=== PATIENT | male | born 1990 | race African-American/Black ===

== ENCOUNTER 2017-01-20 13:31 | Inpatient (IN) | payer MEDICAID, OTHER ==
[~2017-01-20] VITALS: Ht 170.2 cm; Wt 99.4 kg
[~2017-01-20 13:31] MED LIST: BENZ1TAB10 PO; RISP1TAB89 PO
[2017-01-20] MEDS ORDERED: LORazepam 2 MG TABLET PO PRN (16:30)
[2017-01-20] MEDS ORDERED: HALOPERIDOL 5 MG TABLET PO PRN (16:30)
[2017-01-20] MEDS ORDERED: ZOLPIDEM TARTRATE 10 MG TABLET PO PRN (16:30)
[2017-01-20 16:56] LABS: EOSINOPHILS % (AUTO) 0.6 % (1.0-6.0); HEMATOCRIT 46.4 % (41-53); HEMOGLOBIN 15.1 g/dL (13.5-17.5); LYMPHOCYTES # (AUTO) 1.4 K/uL (1.0-4.8); LYMPHOCYTES % (AUTO) 15.7 % (22.0-44.0); MEAN CORPUSCULAR HEMOGLOBIN 28.5 pg (26.0-34.0); MEAN CORPUSCULAR HGB CONC 32.6 G/dL (31.0-37.0); MEAN CORPUSCULAR VOLUME 87 fL (80-100); MONOCYTES # (AUTO) 0.7 K/uL (0.1-1.0); MONOCYTES % (AUTO) 8.1 % (2.0-9.0); NEUTROPHILS # (AUTO) 6.9 K/uL (1.8-7.7); NEUTROPHILS % (AUTO) 75.6 % (40.0-70.0); PLATELET COUNT (AUTO) 238 K/uL (150-450); RED CELL DISTRIBUTION WIDTH 13.5 % (11.5-14.5); WHITE BLOOD COUNT (AUTO) 9.1 K/uL (4.5-11.0)
[2017-01-20 17:05] LABS: ANION GAP 14 mmol/L (8-16); CALCIUM, TOTAL 8.9 mg/dL (8.8-10.5); CARBON DIOXIDE 25 mmol/L (22-29); CHLORIDE 108 mmol/L (98-107); CREATININE 1.28 mg/dL (0.60-1.30); GLOMERULAR FILTR. RATE CALC > 60 mL/min (>60); POTASSIUM 3.8 mmol/L (3.5-5.1); SODIUM SERUM 147 mmol/L (136-145); UREA NITROGEN, BLOOD 18 mg/dL (7-18)
[2017-01-20 17:11] LABS: ALANINE AMINOTRANSFERASE 50 U/L (12-78); ALBUMIN 4.3 g/dL (3.4-5.0); ASPARTATE AMINOTRANSFERASE 87 U/L (15-37); BILIRUBIN,TOTAL 0.7 mg/dL (0.1-1.0); TOTAL PROTEIN, SERUM 7.5 g/dL (6.4-8.2)
[2017-01-20] MEDS ORDERED: LORazepam 2 MG/ML VIAL ONE (23:03)
[2017-01-20] MEDS ORDERED: HALOPERIDOL LACTATE 5 MG/ML VIAL ONE (23:03)
[2017-01-20] MEDS ORDERED: HALOPERIDOL LACTATE 5 MG/ML VIAL IM ONE (23:15)
[2017-01-20] MEDS ORDERED: LORazepam 2 MG/ML VIAL IM ONE (23:15)
[2017-01-21 14:37] VITALS: BP 138/58
[2017-01-21] MEDS ORDERED: INFLUENZA VIRUS VACCINE QVS 2016-17 (3YR+)/PF 60 MCG/0.5 ML SYRINGE IM ONE (16:15)
[2017-01-21 16:16] VITALS: BP 138/88
[2017-01-22 06:38] VITALS: BP 135/88
[2017-01-22 08:30] VITALS: BP 104/80
[2017-01-22] MEDS ORDERED: IBUPROFEN 400 MG TABLET PO PRN (11:15)
[2017-01-22] MEDS ORDERED: ACETAMINOPHEN 325 MG TABLET PO PRN (11:15)
[2017-01-22 16:25] VITALS: BP 123/72
[2017-01-22] MEDS: OLANZapine 5 MG TABLET PO SCH (16:56)
[2017-01-23 06:09] VITALS: BP 117/80
[2017-01-23 09:03] VITALS: BP 112/68
[2017-01-23] MEDS: OLANZapine 5 MG TABLET PO SCH ×2 (11:33→16:41)
[2017-01-23 16:00] VITALS: BP 117/69
[2017-01-24 07:19] VITALS: BP 116/68
[2017-01-24] MEDS: OLANZapine 5 MG TABLET PO SCH (08:49)
[2017-01-24 09:19] VITALS: BP 142/63
[2017-01-24 09:21] LABS: ANION GAP 8 mmol/L (8-16); CARBON DIOXIDE 31 mmol/L (22-29); CHLORIDE 107 mmol/L (98-107); GLOMERULAR FILTR. RATE CALC > 60 mL/min (>60); POTASSIUM 4.2 mmol/L (3.5-5.1); SODIUM SERUM 146 mmol/L (136-145); UREA NITROGEN, BLOOD 15 mg/dL (7-18)
[2017-01-24] MEDS ORDERED: OLAN5TAB2 PO (10:16)
== END 2017-01-24 13:08 | disposition home or self-care (01) | DRG 750 ==
LOC: EMS 13:32 → B3A 01-21 13:27
PROVIDERS: ADMIT Psychiatry & Neurology Psychiatry; ATTEND Psychiatry & Neurology Psychiatry
DX: F20.0 Paranoid schizophrenia (principal); E87.0 Hyperosmolality and hypernatremia; Z59.0 Homelessness; Z91.14 Patient's other noncompliance with medication regimen; F10.10 Alcohol abuse, uncomplicated; F12.90 Cannabis use, unspecified, uncomplicated; F32.9 Major depressive disorder, single episode, unspecified; F19.10 Other psychoactive substance abuse, uncomplicated; F99 Mental disorder, not otherwise specified; Z87.891 Personal history of nicotine dependence; Z91.09 Other allergy status, other than to drugs and biological substances; Z28.21 Immunization not carried out because of patient refusal
CPT/HCPCS: 96372; 99285; G0480; J1630; J2060

== ENCOUNTER 2017-01-26 01:02 | Emergency (ER) | payer MEDICAID, OTHER ==
[~2017-01-26] VITALS: Ht 172.7 cm; Wt 97.7 kg
[~2017-01-26 01:02] MED LIST changes: -BENZ1TAB10 PO; +OLAN5TAB2 PO; -RISP1TAB89 PO
[2017-01-26 05:25] VITALS: BP 144/83
== END 2017-01-26 05:59 | disposition home or self-care (01) ==
LOC: EMS 01:03
DX: S90.821A Blister (nonthermal), right foot, initial encounter (principal); S90.822A Blister (nonthermal), left foot, initial encounter; F12.90 Cannabis use, unspecified, uncomplicated; Z87.891 Personal history of nicotine dependence; Z91.048 Other nonmedicinal substance allergy status; Z91.09 Other allergy status, other than to drugs and biological substances
CPT/HCPCS: 99281

== ENCOUNTER 2017-01-26 22:20 | Emergency (ER) | payer OTHER ==
[~2017-01-26] VITALS: Ht 170.2 cm; Wt 97.7 kg
[2017-01-27] MEDS ORDERED: BACITRACIN 0.9 GM PACKET OINTMENT TP ONE (00:30)
[2017-01-27 01:34] VITALS: BP 129/78
== END 2017-01-27 01:34 | disposition home or self-care (01) ==
LOC: EMS 22:32
DX: S90.821A Blister (nonthermal), right foot, initial encounter (principal); S90.822A Blister (nonthermal), left foot, initial encounter; F12.90 Cannabis use, unspecified, uncomplicated; Z87.891 Personal history of nicotine dependence; Z91.048 Other nonmedicinal substance allergy status
CPT/HCPCS: 99282

== ENCOUNTER 2017-02-03 11:08 | Inpatient (IN) | payer MEDICAID, OTHER ==
[~2017-02-03] VITALS: Ht 172.7 cm; Wt 96.3 kg
[2017-02-03 11:52] LABS: BASOPHILS % (AUTO) 0.3 % (0.0-2.0); EOSINOPHILS % (AUTO) 2.8 % (1.0-6.0); HEMATOCRIT 44.8 % (41-53); HEMOGLOBIN 14.7 g/dL (13.5-17.5); LYMPHOCYTES # (AUTO) 1.4 K/uL (1.0-4.8); LYMPHOCYTES % (AUTO) 16.4 % (22.0-44.0); MEAN CORPUSCULAR HEMOGLOBIN 28.6 pg (26.0-34.0); MEAN CORPUSCULAR HGB CONC 32.9 G/dL (31.0-37.0); MEAN CORPUSCULAR VOLUME 87 fL (80-100); MONOCYTES # (AUTO) 0.5 K/uL (0.1-1.0); MONOCYTES % (AUTO) 6.3 % (2.0-9.0); NEUTROPHILS # (AUTO) 6.4 K/uL (1.8-7.7); NEUTROPHILS % (AUTO) 74.2 % (40.0-70.0); PLATELET COUNT (AUTO) 295 K/uL (150-450); RED BLOOD CELL COUNT(AUTO) 5.15 MIL/uL (4.50-5.90); RED CELL DISTRIBUTION WIDTH 13.7 % (11.5-14.5); WHITE BLOOD COUNT (AUTO) 8.7 K/uL (4.5-11.0)
[2017-02-03] MEDS ORDERED: DiphenhydrAMINE HCL 50 MG/ML VIAL IM ONE (12:00)
[2017-02-03] MEDS ORDERED: LORazepam 2 MG/ML VIAL IM ONE (12:00)
[2017-02-03] MEDS ORDERED: HALOPERIDOL LACTATE 5 MG/ML VIAL IM ONE (12:00)
[2017-02-03 12:04] LABS: ANION GAP 10 mmol/L (8-16); CALCIUM, TOTAL 8.2 mg/dL (8.8-10.5); CARBON DIOXIDE 29 mmol/L (22-29); CHLORIDE 104 mmol/L (98-107); CREATININE 1.16 mg/dL (0.60-1.30); GLOMERULAR FILTR. RATE CALC > 60 mL/min (>60); POTASSIUM 3.7 mmol/L (3.5-5.1); SODIUM SERUM 143 mmol/L (136-145); UREA NITROGEN, BLOOD 11 mg/dL (7-18)
[2017-02-03 12:11] LABS: ALANINE AMINOTRANSFERASE 97 U/L (12-78); ALBUMIN 3.8 g/dL (3.4-5.0); ASPARTATE AMINOTRANSFERASE 39 U/L (15-37); BILIRUBIN,TOTAL 0.7 mg/dL (0.1-1.0); TOTAL PROTEIN, SERUM 7.3 g/dL (6.4-8.2)
[2017-02-03] MEDS ORDERED: ZOLPIDEM TARTRATE 10 MG TABLET PO PRN (12:15)
[2017-02-03] MEDS ORDERED: HALOPERIDOL 5 MG TABLET PO PRN (12:15)
[2017-02-03 17:03] VITALS: BP 109/56
[2017-02-03 17:31] VITALS: BP 109/56
[2017-02-03] MEDS ORDERED: PNEUMOCOCCAL VACCINE POLYVALENT 0.5 ML VIAL [PPSV23] IM ONE (18:15)
[2017-02-03] MEDS ORDERED: INFLUENZA VIRUS VACCINE QVS 2016-17 (3YR+)/PF 60 MCG/0.5 ML SYRINGE IM ONE (18:15)
[2017-02-04 06:53] VITALS: BP 109/76
[2017-02-04 08:33] VITALS: BP 138/62
[2017-02-04] MEDS: HALOPERIDOL 5 MG TABLET PO SCH ×2 (09:01→17:06)
[2017-02-04] MEDS: LORazepam 2 MG TABLET PO PRN ×2 (09:01→17:06)
[2017-02-04 16:16] VITALS: BP 123/77
[2017-02-04] MEDS ORDERED: IBUPROFEN 400 MG TABLET PO PRN (23:00)
[2017-02-04] MEDS ORDERED: ACETAMINOPHEN 325 MG TABLET PO PRN (23:00)
[2017-02-05 06:28] VITALS: BP 120/66
[2017-02-05] MEDS: HALOPERIDOL 5 MG TABLET PO SCH ×2 (09:15→16:37)
[2017-02-05] MEDS: LORazepam 2 MG TABLET PO PRN ×2 (09:15→16:38)
[2017-02-05 09:27] VITALS: BP 124/68
[2017-02-05 16:01] VITALS: BP 127/78
[2017-02-06 05:05] VITALS: BP 127/71
[2017-02-06 08:07] VITALS: BP 112/70
[2017-02-06] MEDS: HALOPERIDOL 5 MG TABLET PO SCH ×2 (09:42→16:26)
[2017-02-06] MEDS ORDERED: INFLUENZA VIRUS VACCINE QVS 2016-17 (3YR+)/PF 60 MCG/0.5 ML SYRINGE IM ONE (10:30)
[2017-02-06 16:02] VITALS: BP 124/72
[2017-02-06] MEDS: LORazepam 2 MG TABLET PO PRN (16:26)
[2017-02-07 06:45] VITALS: BP 124/73
[2017-02-07] MEDS: HALOPERIDOL 5 MG TABLET PO SCH ×2 (08:06→17:05)
[2017-02-07 08:31] VITALS: BP 121/73
[2017-02-07 16:00] VITALS: BP 118/60
[2017-02-07] MEDS ORDERED: HALOPERIDOL DECANOATE 50 MG/ML VIAL IM SCH (16:15)
[2017-02-08 06:45] VITALS: BP 117/66
[2017-02-08 08:03] VITALS: BP 117/61
[2017-02-08] MEDS: LORazepam 2 MG TABLET PO PRN ×2 (09:45→17:05)
[2017-02-08] MEDS: HALOPERIDOL 5 MG TABLET PO SCH ×2 (09:45→17:05)
[2017-02-08 16:45] VITALS: BP 126/70
[2017-02-09 06:43] VITALS: BP 117/60
[2017-02-09] MEDS: HALOPERIDOL 5 MG TABLET PO SCH (08:00)
[2017-02-09] MEDS ORDERED: HALO5 PO (08:12)
[2017-02-09 08:17] VITALS: BP 119/71
[2017-03-08] MEDS ORDERED: HALOPERIDOL DECANOATE 50 MG/ML VIAL IM SCH (09:00)
== END 2017-02-09 09:03 | disposition home or self-care (01) | DRG 750 ==
LOC: EMS 11:09 → B3A 15:46
PROVIDERS: ADMIT Psychiatry & Neurology Psychiatry; ATTEND Psychiatry & Neurology Psychiatry
DX: F20.0 Paranoid schizophrenia (principal); Z91.14 Patient's other noncompliance with medication regimen; F32.9 Major depressive disorder, single episode, unspecified; F10.10 Alcohol abuse, uncomplicated; F19.10 Other psychoactive substance abuse, uncomplicated; F99 Mental disorder, not otherwise specified; Z79.899 Other long term (current) drug therapy; Z59.0 Homelessness; Z87.891 Personal history of nicotine dependence; Z91.19 Patient's noncompliance with other medical treatment and regimen; Z91.09 Other allergy status, other than to drugs and biological substances
CPT/HCPCS: 84443; 87081; 90471; 96372; 99285; G0480; J1200; J1630; J1631; J2060

== ENCOUNTER 2017-02-10 03:18 | Emergency (ER) | payer MEDICAID, OTHER ==
[~2017-02-10] VITALS: Ht 167.6 cm; Wt 113.6 kg
[~2017-02-10 03:18] MED LIST changes: +HALO5 PO
[2017-02-10 05:31] VITALS: BP 122/75
== END 2017-02-10 05:38 | disposition home or self-care (01) ==
LOC: EMS 03:20
DX: K08.89 Other specified disorders of teeth and supporting structures (principal); F12.90 Cannabis use, unspecified, uncomplicated; Z87.891 Personal history of nicotine dependence; Z91.048 Other nonmedicinal substance allergy status; Z91.09 Other allergy status, other than to drugs and biological substances
CPT/HCPCS: 99281

== ENCOUNTER 2018-07-07 19:41 | Emergency (ER) | payer SELFPAY ==
[~2018-07-07] VITALS: Ht 175.3 cm; Wt 111.4 kg
[~2018-07-07 19:41] MED LIST changes: -HALO5 PO; +HALO5TAB2 PO; -OLAN5TAB2 PO
[2018-07-07 20:05] VITALS: BP 162/94
== END 2018-07-07 21:55 | disposition home or self-care (01) ==
LOC: EMS 19:42
DX: F20.9 Schizophrenia, unspecified (principal); F12.90 Cannabis use, unspecified, uncomplicated; F17.210 Nicotine dependence, cigarettes, uncomplicated
CPT/HCPCS: 99285

== ENCOUNTER 2020-03-20 14:26 | Emergency (ER) | payer MEDICARE ==
[~2020-03-20] VITALS: Ht 175.3 cm; Wt 90.9 kg
[2020-03-20 14:34] VITALS: BP 160/82
[2020-03-20 16:58] LABS: BASOPHILS % (AUTO) 0.7 % (0.0-2.0); HEMOGLOBIN 14.2 g/dL (13.5-17.5); LYMPHOCYTES # (AUTO) 2.2 K/uL (1.0-4.8); LYMPHOCYTES % (AUTO) 22.9 % (22.0-44.0); MEAN CORPUSCULAR HEMOGLOBIN 28.4 pg (26.0-34.0); MEAN CORPUSCULAR HGB CONC 33.1 G/dL (31.0-37.0); MEAN CORPUSCULAR VOLUME 86 fL (80-100); MONOCYTES % (AUTO) 10.9 % (2.0-9.0); NEUTROPHILS # (AUTO) 6.1 K/uL (1.8-7.7); NEUTROPHILS % (AUTO) 64.5 % (40.0-70.0); PLATELET COUNT (AUTO) 295 K/uL (150-450); RED BLOOD CELL COUNT(AUTO) 5.02 MIL/uL (4.50-5.90); RED CELL DISTRIBUTION WIDTH 13.8 % (11.5-14.5)
[2020-03-20 17:07] LABS: ANION GAP 7 mmol/L (8-16); CALCIUM, TOTAL 8.9 mg/dL (8.8-10.5); CARBON DIOXIDE 28 mmol/L (22-29); CHLORIDE 105 mmol/L (98-107); CREATININE 1.43 mg/dL (0.60-1.30); GLOMERULAR FILTR. RATE CALC > 60 mL/min (>60); GLUCOSE,RANDOM 108 mg/dL (70-110); POTASSIUM 3.6 mmol/L (3.5-5.1); SODIUM SERUM 140 mmol/L (136-145); UREA NITROGEN, BLOOD 18 mg/dL (7-18)
[2020-03-20 17:13] LABS: ALANINE AMINOTRANSFERASE 60 U/L (12-78); ALBUMIN 4.1 g/dL (3.4-5.0); ALKALINE PHOSPHATASE 78 U/L (46-116); ASPARTATE AMINOTRANSFERASE 64 U/L (15-37); BILIRUBIN,TOTAL 0.4 mg/dL (0.1-1.0); TOTAL PROTEIN, SERUM 7.5 g/dL (6.4-8.2)
== END 2020-03-20 17:54 | disposition home or self-care (01) ==
LOC: EMS 14:28
DX: F69 Unspecified disorder of adult personality and behavior (principal); F12.90 Cannabis use, unspecified, uncomplicated; F20.9 Schizophrenia, unspecified; F17.210 Nicotine dependence, cigarettes, uncomplicated
CPT/HCPCS: 36415; 80053; 85025; 99284; G0480

== ENCOUNTER 2020-04-13 05:15 | Emergency (ER) | payer MEDICARE ==
[~2020-04-13] VITALS: Ht 175.3 cm; Wt 109.1 kg
[2020-04-13] MEDS ORDERED: ATEN-187 PO (05:29)
[2020-04-13 06:50] VITALS: BP 130/101
== END 2020-04-13 07:16 | disposition home or self-care (01) ==
LOC: EMS 05:15
DX: F20.9 Schizophrenia, unspecified (principal); F17.210 Nicotine dependence, cigarettes, uncomplicated; I10 Essential (primary) hypertension; F14.90 Cocaine use, unspecified, uncomplicated; F12.90 Cannabis use, unspecified, uncomplicated; Z76.0 Encounter for issue of repeat prescription
CPT/HCPCS: 99406

== ENCOUNTER 2020-04-20 20:54 | Emergency (ER) | payer MEDICARE ==
[~2020-04-20] VITALS: Ht 175.3 cm; Wt 145.4 kg
[~2020-04-20 20:54] MED LIST changes: +ATEN-187 PO; -HALO5TAB2 PO
[2020-04-20 21:04] VITALS: BP 145/81
[2020-04-21] MEDS ORDERED: OLAN5TAB2 PO (07:03)
== END 2020-04-20 21:25 | disposition left against medical advice (07) ==
LOC: EMS 20:54
DX: Z76.0 Encounter for issue of repeat prescription (principal); Z53.21 Procedure and treatment not carried out due to patient leaving prior to being seen by health care provider

== ENCOUNTER 2020-04-21 06:54 | Emergency (ER) | payer MEDICARE ==
[~2020-04-21] VITALS: Ht 175.3 cm; Wt 136.4 kg
[2020-04-21] MEDS ORDERED: OLAN5TAB2 PO (07:03)
[2020-04-21] MEDS ORDERED: IBUPROFEN 800 MG TABLET PO ONE (07:30)
[2020-04-21 08:13] VITALS: BP 132/79
== END 2020-04-21 08:14 | disposition home or self-care (01) ==
LOC: EMS 06:54
DX: J39.2 Other diseases of pharynx (principal); I10 Essential (primary) hypertension; F17.210 Nicotine dependence, cigarettes, uncomplicated; F12.90 Cannabis use, unspecified, uncomplicated; F20.9 Schizophrenia, unspecified

== ENCOUNTER 2020-09-28 04:10 | Emergency (ER) | payer MEDICARE ==
[~2020-09-28] VITALS: Ht 175.3 cm; Wt 88.2 kg
[~2020-09-28 04:10] MED LIST changes: +OLAN5TAB2 PO
[2020-09-28 05:23] VITALS: BP 135/70
== END 2020-09-28 07:07 | disposition home or self-care (01) ==
LOC: EMS 04:14
DX: Z59.0 Homelessness (principal); I10 Essential (primary) hypertension; F20.9 Schizophrenia, unspecified; F17.210 Nicotine dependence, cigarettes, uncomplicated; F12.90 Cannabis use, unspecified, uncomplicated; Z76.0 Encounter for issue of repeat prescription
CPT/HCPCS: 99283; Z7502

== ENCOUNTER 2020-10-25 23:29 | Emergency (ER) | payer BC ==
[~2020-10-25] VITALS: Ht 180.3 cm; Wt 136.4 kg
[2020-10-26 02:26] LABS: BASOPHILS % (AUTO) 0.4 % (0.0-2.0); EOSINOPHILS % (AUTO) 6.8 % (1.0-6.0); LYMPHOCYTES # (AUTO) 1.4 K/uL (1.0-4.8); LYMPHOCYTES % (AUTO) 12.7 % (22.0-44.0); MEAN CORPUSCULAR HEMOGLOBIN 29.9 pg (26.0-34.0); MEAN CORPUSCULAR HGB CONC 34.2 G/dL (31.0-37.0); MEAN CORPUSCULAR VOLUME 88 fL (80-100); MONOCYTES % (AUTO) 9.5 % (2.0-9.0); NEUTROPHILS # (AUTO) 7.7 K/uL (1.8-7.7); NEUTROPHILS % (AUTO) 70.6 % (40.0-70.0); PLATELET COUNT (AUTO) 298 K/uL (150-450); RED BLOOD CELL COUNT(AUTO) 5.03 MIL/uL (4.50-5.90); RED CELL DISTRIBUTION WIDTH 14.1 % (11.5-14.5)
[2020-10-26 02:36] LABS: ANION GAP 5 mmol/L (8-16); CALCIUM, TOTAL 8.8 mg/dL (8.8-10.5); CARBON DIOXIDE 32 mmol/L (22-29); CHLORIDE 105 mmol/L (98-107); CREATININE 1.47 mg/dL (0.60-1.30); GLOMERULAR FILTR. RATE CALC 57 mL/min (>60); GLUCOSE,RANDOM 64 mg/dL (70-110); POTASSIUM 4.1 mmol/L (3.5-5.1); SODIUM SERUM 142 mmol/L (136-145); UREA NITROGEN, BLOOD 17 mg/dL (7-18)
[2020-10-26 02:44] LABS: ALANINE AMINOTRANSFERASE 36 U/L (12-78); ALBUMIN 3.9 g/dL (3.4-5.0); ALKALINE PHOSPHATASE 89 U/L (46-116); ASPARTATE AMINOTRANSFERASE 29 U/L (15-37); BILIRUBIN,TOTAL 0.4 mg/dL (0.1-1.0); TOTAL PROTEIN, SERUM 7.5 g/dL (6.4-8.2)
[2020-10-26 02:48] VITALS: BP 132/89
== END 2020-10-26 03:01 | disposition home or self-care (01) ==
LOC: EMS 23:29
DX: F22 Delusional disorders (principal); I10 Essential (primary) hypertension; F17.210 Nicotine dependence, cigarettes, uncomplicated; F12.90 Cannabis use, unspecified, uncomplicated; Z76.0 Encounter for issue of repeat prescription
CPT/HCPCS: 80053; 85025; 99283; 99406; G0480

== ENCOUNTER 2020-11-02 17:58 | Emergency (ER) | payer BC ==
[~2020-11-02] VITALS: Ht 170.2 cm; Wt 127.3 kg
[2020-11-02 18:11] VITALS: BP 137/78
[2020-11-02] MEDS ORDERED: KETOROLAC TROMETHAMINE 30 MG/ML VIAL IM ONE (19:45)
[2020-11-02] MEDS ORDERED: LIDOCAINE 1% 10 ML VIAL IM ONE (20:00)
== END 2020-11-02 20:37 | disposition home or self-care (01) ==
LOC: EMS 18:00
DX: S29.012A Strain of muscle and tendon of back wall of thorax, initial encounter (principal); F20.9 Schizophrenia, unspecified; I10 Essential (primary) hypertension; F17.210 Nicotine dependence, cigarettes, uncomplicated; F12.90 Cannabis use, unspecified, uncomplicated; X58.XXXA Exposure to other specified factors, initial encounter; Y93.02 Activity, running; Y92.89 Other specified places as the place of occurrence of the external cause; Y99.8 Other external cause status
CPT/HCPCS: 96372; 99284; J1885; J3490

== ENCOUNTER 2020-11-04 22:41 | Emergency (ER) | payer BC ==
[~2020-11-04] VITALS: Ht 177.8 cm; Wt 92.3 kg
[2020-11-05 02:03] VITALS: BP 129/75
== END 2020-11-05 02:20 | disposition home or self-care (01) ==
LOC: EMS 22:43
DX: J02.9 Acute pharyngitis, unspecified (principal); R09.81 Nasal congestion; I10 Essential (primary) hypertension; F20.9 Schizophrenia, unspecified; F17.210 Nicotine dependence, cigarettes, uncomplicated; F12.90 Cannabis use, unspecified, uncomplicated; Z20.828 Contact with and (suspected) exposure to other viral communicable diseases; Z88.8 Allergy status to other drugs, medicaments and biological substances
CPT/HCPCS: 87430; 99283; U0003

== ENCOUNTER 2021-01-18 07:21 | Emergency (ER) | payer BC, MEDICARE ==
[~2021-01-18] VITALS: Ht 175.3 cm; Wt 100.0 kg
[2021-01-18 07:27] VITALS: BP 137/83
[2021-01-18] MEDS ORDERED: OLANZapine 5 MG TABLET PO ONE (07:45)
== END 2021-01-18 08:19 | disposition home or self-care (01) ==
LOC: EMS 07:23
DX: Z76.0 Encounter for issue of repeat prescription (principal); I10 Essential (primary) hypertension; F20.9 Schizophrenia, unspecified; F17.210 Nicotine dependence, cigarettes, uncomplicated; F12.90 Cannabis use, unspecified, uncomplicated; Z59.0 Homelessness; Z88.8 Allergy status to other drugs, medicaments and biological substances
CPT/HCPCS: 99281; 99283

== ENCOUNTER 2021-04-19 19:36 | Emergency (ER) | payer MEDICARE ==
[~2021-04-19] VITALS: Ht 180.3 cm; Wt 106.8 kg
[~2021-04-19 19:36] MED LIST changes: -OLAN5TAB2 PO; +OLAN5TAB52 PO
[2021-04-19 21:00] VITALS: BP 126/62
== END 2021-04-19 21:20 | disposition home or self-care (01) ==
LOC: EMS 19:38
DX: F20.0 Paranoid schizophrenia (principal); I10 Essential (primary) hypertension; F17.210 Nicotine dependence, cigarettes, uncomplicated; F12.90 Cannabis use, unspecified, uncomplicated; Z88.8 Allergy status to other drugs, medicaments and biological substances
CPT/HCPCS: 99284; Z7502

== ENCOUNTER 2021-04-25 07:17 | Emergency (ER) | payer MEDICARE ==
[~2021-04-25] VITALS: Ht 172.7 cm; Wt 72.7 kg
[2021-04-25 08:43] LABS: BASOPHILS % (AUTO) 0.7 % (0.0-2.0); EOSINOPHILS % (AUTO) 5.4 % (1.0-6.0); HEMATOCRIT 45.5 % (41-53); HEMOGLOBIN 15.2 g/dL (13.5-17.5); LYMPHOCYTES # (AUTO) 1.8 K/uL (1.0-4.8); LYMPHOCYTES % (AUTO) 32.4 % (22.0-44.0); MEAN CORPUSCULAR HEMOGLOBIN 29.5 pg (26.0-34.0); MEAN CORPUSCULAR HGB CONC 33.5 G/dL (31.0-37.0); MEAN CORPUSCULAR VOLUME 88 fL (80-100); MONOCYTES # (AUTO) 0.5 K/uL (0.1-1.0); MONOCYTES % (AUTO) 8.4 % (2.0-9.0); NEUTROPHILS # (AUTO) 2.9 K/uL (1.8-7.7); NEUTROPHILS % (AUTO) 53.1 % (40.0-70.0); PLATELET COUNT (AUTO) 260 K/uL (150-450); RED BLOOD CELL COUNT(AUTO) 5.16 MIL/uL (4.50-5.90); RED CELL DISTRIBUTION WIDTH 13.5 % (11.5-14.5)
[2021-04-25 08:54] LABS: ANION GAP 10 mmol/L (8-16); CALCIUM, TOTAL 8.7 mg/dL (8.8-10.5); CARBON DIOXIDE 30 mmol/L (22-29); CHLORIDE 104 mmol/L (98-107); CREATININE 1.08 mg/dL (0.60-1.30); GLOMERULAR FILTR. RATE CALC > 60 mL/min (>60); GLUCOSE,RANDOM 91 mg/dL (70-110); POTASSIUM 4.4 mmol/L (3.5-5.1); SODIUM SERUM 144 mmol/L (136-145); UREA NITROGEN, BLOOD 24 mg/dL (7-18)
[2021-04-25 09:08] LABS: ALANINE AMINOTRANSFERASE 40 U/L (12-78); ALBUMIN 3.8 g/dL (3.4-5.0); ALKALINE PHOSPHATASE 79 U/L (46-116); ASPARTATE AMINOTRANSFERASE 43 U/L (15-37); BILIRUBIN,TOTAL 0.4 mg/dL (0.1-1.0); FREE T4 (FREE THYROXINE) 1.13 ng/dL (0.76-1.46); PHOSPHORUS 4.4 mg/dL (2.5-4.9); THYROID STIMULATING HORMONE 1.34 uIU/mL (0.36-3.74); TOTAL PROTEIN, SERUM 7.2 g/dL (6.4-8.2)
[2021-04-25 09:12] LABS: COVID AG,FIA SOURCE NASOPHARYNGEAL
[2021-04-25 10:08] LABS: RAPID GROUP A STREP NEGATIVE (NEGATIVE)
[2021-04-25 11:00] VITALS: BP 122/81
== END 2021-04-25 11:02 | disposition home or self-care (01) ==
LOC: EMS 07:19
DX: J02.9 Acute pharyngitis, unspecified (principal); F20.9 Schizophrenia, unspecified; Z20.822 Contact with and (suspected) exposure to COVID-19; I10 Essential (primary) hypertension; F17.210 Nicotine dependence, cigarettes, uncomplicated; F12.90 Cannabis use, unspecified, uncomplicated
CPT/HCPCS: 36415; 80053; 83735; 84100; 84439; 84443; 85025; 87426; 87430; 99283; G0480

== ENCOUNTER 2021-05-03 07:24 | Inpatient (IN) | payer MEDICARE ==
[~2021-05-03] VITALS: Ht 172.7 cm; Wt 74.8 kg
[2021-05-03] MEDS ORDERED: OLAN7.5T22 PO (07:47)
[2021-05-03 08:15] LABS: BASOPHILS % (AUTO) 0.9 % (0.0-2.0); EOSINOPHILS % (AUTO) 2.7 % (1.0-6.0); HEMATOCRIT 41.5 % (41-53); HEMOGLOBIN 13.2 g/dL (13.5-17.5); LYMPHOCYTES # (AUTO) 3.5 K/uL (1.0-4.8); LYMPHOCYTES % (AUTO) 32.3 % (22.0-44.0); MEAN CORPUSCULAR HEMOGLOBIN 26.2 pg (26.0-34.0); MEAN CORPUSCULAR HGB CONC 31.8 G/dL (31.0-37.0); MEAN CORPUSCULAR VOLUME 82 fL (80-100); MONOCYTES % (AUTO) 9.8 % (2.0-9.0); NEUTROPHILS # (AUTO) 5.8 K/uL (1.8-7.7); NEUTROPHILS % (AUTO) 54.3 % (40.0-70.0); PLATELET COUNT (AUTO) 283 K/uL (150-450); RED BLOOD CELL COUNT(AUTO) 5.04 MIL/uL (4.50-5.90); RED CELL DISTRIBUTION WIDTH 13.8 % (11.5-14.5)
[2021-05-03 08:25] LABS: ANION GAP 8 mmol/L (8-16); CALCIUM, TOTAL 8.6 mg/dL (8.8-10.5); CARBON DIOXIDE 26 mmol/L (22-29); CHLORIDE 105 mmol/L (98-107); CREATININE 1.02 mg/dL (0.60-1.30); GLOMERULAR FILTR. RATE CALC > 60 mL/min (>60); GLUCOSE,RANDOM 110 mg/dL (70-110); POTASSIUM 3.7 mmol/L (3.5-5.1); SODIUM SERUM 139 mmol/L (136-145); UREA NITROGEN, BLOOD 8 mg/dL (7-18)
[2021-05-03 08:37] LABS: ALANINE AMINOTRANSFERASE 34 U/L (12-78); ALBUMIN 3.5 g/dL (3.4-5.0); ALKALINE PHOSPHATASE 71 U/L (46-116); ASPARTATE AMINOTRANSFERASE 24 U/L (15-37); BILIRUBIN,TOTAL 0.2 mg/dL (0.1-1.0); TOTAL PROTEIN, SERUM 6.6 g/dL (6.4-8.2)
[2021-05-03 09:51] LABS: AMPHET/METH SCREEN,URINE NEGATIVE (NEGATIVE); BARBITURATE SCREEN, URINE NEGATIVE (NEGATIVE); BENZODIAZEPINES SCREEN,URINE NEGATIVE (NEGATIVE); CANNABINOID SCREEN,URINE POSITIVE (NEGATIVE); COCAINE SCREEN,URINE NEGATIVE (NEGATIVE); METHADONE SCREEN, URINE NEGATIVE (NEGATIVE); OPIATE SCREEN,URINE NEGATIVE (NEGATIVE)
[2021-05-03 09:53] LABS: PHENCYCLIDINE SCREEN,URINE NEGATIVE (NEGATIVE)
[2021-05-03 13:22] LABS: COVID AG,FIA SOURCE NASOPHARYNGEAL
[2021-05-03] MEDS ORDERED: PROMETHAZINE HCL 25 MG TABLET PO PRN (13:30)
[2021-05-03] MEDS ORDERED: MAGNESIUM HYDROXIDE SUSPENSION 30 ML UDCUP PO PRN (13:30)
[2021-05-03] MEDS ORDERED: GuaiFENesin/D-METHORPHAN [SUGAR-FREE] 200-20MG/10 ML SYRUP UDCUP PO PRN (13:30)
[2021-05-03] MEDS ORDERED: TUBERCULIN, PURIFIED PROTEIN DERIVATIVE 5 TU/0.1 ML SYRINGE ID ONE (13:30)
[2021-05-03] MEDS ORDERED: LOPERAMIDE HCL 2 MG CAPSULE PO PRN (13:30)
[2021-05-03] MEDS ORDERED: MAG HYDROX/AL HYDROX/SIMETH ES 30 ML SUSPENSION UDCUP PO PRN (13:30)
[2021-05-03] MEDS ORDERED: ACETAMINOPHEN 325 MG TABLET PO PRN (13:30)
[2021-05-03] MEDS: THIAMINE 100 MG TABLET PO SCH (16:46)
[2021-05-03 18:12] VITALS: BP 122/68
[2021-05-03] MEDS: ZOLPIDEM TARTRATE 10 MG TABLET PO PRN (20:42)
[2021-05-03] MEDS: MELATONIN 5 MG TABLET PO SCH (20:43)
[2021-05-03] MEDS: DIVALPROEX SODIUM 500 MG ER TABLET PO SCH (20:44)
[2021-05-03] MEDS ORDERED: OLANZapine 5 MG RAPDIS TABLET PO SCH (21:00)
[2021-05-04] MEDS ORDERED: PNEUMOCOCCAL VACCINE POLYVALENT 0.5 ML VIAL [PPSV23] IM. ONE (03:30)
[2021-05-04 05:33] VITALS: BP 116/71
[2021-05-04] MEDS: THIAMINE 100 MG TABLET PO SCH ×2 (09:21→17:00)
[2021-05-04] MEDS: FOLIC ACID 1 MG TABLET PO SCH (09:21)
[2021-05-04] MEDS: NALTREXONE HCL 50 MG TABLET PO SCH (09:21)
[2021-05-04] MEDS: MULTIVITAMINS WITH MINERALS, THERAPEUTIC TABLET PO SCH (09:21)
[2021-05-04] MEDS: OMEGA-3/DHA/EPA/FISH OIL 1,000 MG CAPSULE PO SCH (09:21)
[2021-05-04 16:20] VITALS: BP 124/67
[2021-05-04] MEDS ORDERED: DiphenhydrAMINE HCL 50 MG/ML VIAL IM ONE (17:15)
[2021-05-04] MEDS ORDERED: LORazepam 2 MG/ML VIAL IM ONE (17:15)
[2021-05-04] MEDS ORDERED: HALOPERIDOL LACTATE 5 MG/ML VIAL IM ONE (17:15)
[2021-05-04] MEDS: MELATONIN 5 MG TABLET PO SCH (21:06)
[2021-05-04] MEDS: HydrOXYzine PAMOATE 50 MG CAPSULE PO PRN (21:07)
[2021-05-04] MEDS: DIVALPROEX SODIUM 500 MG ER TABLET PO SCH (21:07)
[2021-05-04] MEDS: LORazepam 2 MG TABLET PO PRN (21:07)
[2021-05-04] MEDS: OLANZapine 10 MG RAPDIS TABLET PO SCH (21:07)
[2021-05-05 08:55] VITALS: BP 129/72
[2021-05-05] MEDS: NALTREXONE HCL 50 MG TABLET PO SCH (09:05)
[2021-05-05] MEDS: OMEGA-3/DHA/EPA/FISH OIL 1,000 MG CAPSULE PO SCH (09:05)
[2021-05-05] MEDS: FOLIC ACID 1 MG TABLET PO SCH (09:05)
[2021-05-05] MEDS: THIAMINE 100 MG TABLET PO SCH ×2 (09:06→17:44)
[2021-05-05] MEDS: MULTIVITAMINS WITH MINERALS, THERAPEUTIC TABLET PO SCH (09:06)
[2021-05-05] MEDS ORDERED: PALIPERIDONE PALMITATE 234 MG/1.5 ML SYRINGE IM ONE (16:00)
[2021-05-05] MEDS: DIVALPROEX SODIUM 500 MG ER TABLET PO SCH (19:27)
[2021-05-05] MEDS: OLANZapine 10 MG RAPDIS TABLET PO SCH (19:29)
[2021-05-05] MEDS: MELATONIN 5 MG TABLET PO SCH (19:29)
[2021-05-06 08:00] VITALS: BP 133/94
[2021-05-06] MEDS ORDERED: DiphenhydrAMINE HCL 50 MG/ML VIAL IM ONE (08:00)
[2021-05-06] MEDS ORDERED: HALOPERIDOL LACTATE 5 MG/ML VIAL IM ONE (08:00)
[2021-05-06] MEDS ORDERED: LORazepam 2 MG/ML VIAL IM ONE (08:00)
[2021-05-06] MEDS: MULTIVITAMINS WITH MINERALS, THERAPEUTIC TABLET PO SCH (09:33)
[2021-05-06] MEDS: NALTREXONE HCL 50 MG TABLET PO SCH (09:33)
[2021-05-06] MEDS: FOLIC ACID 1 MG TABLET PO SCH (09:33)
[2021-05-06] MEDS: THIAMINE 100 MG TABLET PO SCH ×2 (09:33→16:58)
[2021-05-06] MEDS: OMEGA-3/DHA/EPA/FISH OIL 1,000 MG CAPSULE PO SCH (09:34)
[2021-05-06] MEDS: OLANZapine 5 MG RAPDIS TABLET PO PRN (16:58)
[2021-05-06] MEDS: HydrOXYzine PAMOATE 50 MG CAPSULE PO PRN (16:59)
[2021-05-06] MEDS: LORazepam 2 MG TABLET PO PRN ×2 (16:59→20:59)
[2021-05-06 17:10] VITALS: BP 118/61
[2021-05-06] MEDS: MELATONIN 5 MG TABLET PO SCH (20:48)
[2021-05-06] MEDS: OLANZapine 10 MG RAPDIS TABLET PO SCH (20:48)
[2021-05-06] MEDS: ZOLPIDEM TARTRATE 10 MG TABLET PO PRN (20:48)
[2021-05-06] MEDS: DIVALPROEX SODIUM 500 MG ER TABLET PO SCH (20:48)
[2021-05-07 06:16] VITALS: BP 128/78
[2021-05-07 08:25] VITALS: BP 142/79
[2021-05-07] MEDS: HydrOXYzine PAMOATE 50 MG CAPSULE PO PRN (08:30)
[2021-05-07] MEDS: LORazepam 2 MG TABLET PO PRN (08:30)
[2021-05-07] MEDS: OLANZapine 5 MG RAPDIS TABLET PO PRN (08:30)
[2021-05-07] MEDS: THIAMINE 100 MG TABLET PO SCH ×2 (09:30→16:52)
[2021-05-07] MEDS: OMEGA-3/DHA/EPA/FISH OIL 1,000 MG CAPSULE PO SCH (09:30)
[2021-05-07] MEDS: NALTREXONE HCL 50 MG TABLET PO SCH (09:30)
[2021-05-07] MEDS: MULTIVITAMINS WITH MINERALS, THERAPEUTIC TABLET PO SCH (09:30)
[2021-05-07] MEDS: FOLIC ACID 1 MG TABLET PO SCH (09:30)
[2021-05-07] MEDS ORDERED: PALIPERIDONE PALMITATE 234 MG/1.5 ML SYRINGE IM ONE (13:30)
[2021-05-07 16:57] VITALS: BP 118/62
[2021-05-07] MEDS: MELATONIN 5 MG TABLET PO SCH (20:41)
[2021-05-07] MEDS: OLANZapine 10 MG RAPDIS TABLET PO SCH (20:41)
[2021-05-07] MEDS: DIVALPROEX SODIUM 500 MG ER TABLET PO SCH (20:41)
[2021-05-08 01:21] VITALS: BP 138/84
[2021-05-08] MEDS: THIAMINE 100 MG TABLET PO SCH ×2 (09:00→16:55)
[2021-05-08] MEDS: NALTREXONE HCL 50 MG TABLET PO SCH (09:00)
[2021-05-08] MEDS: MULTIVITAMINS WITH MINERALS, THERAPEUTIC TABLET PO SCH (09:00)
[2021-05-08] MEDS: FOLIC ACID 1 MG TABLET PO SCH (09:00)
[2021-05-08] MEDS: OMEGA-3/DHA/EPA/FISH OIL 1,000 MG CAPSULE PO SCH (09:00)
[2021-05-08 10:40] VITALS: BP 143/98
[2021-05-08 16:25] VITALS: BP 124/87
[2021-05-08] MEDS: OLANZapine 5 MG RAPDIS TABLET PO PRN (18:19)
[2021-05-08] MEDS: OLANZapine 10 MG RAPDIS TABLET PO SCH (19:49)
[2021-05-08] MEDS: DIVALPROEX SODIUM 500 MG ER TABLET PO SCH (19:49)
[2021-05-08] MEDS: MELATONIN 5 MG TABLET PO SCH (19:49)
[2021-05-09 06:34] VITALS: BP 130/82
[2021-05-09] MEDS ORDERED: LORazepam 1 MG TABLET ONE (08:00)
[2021-05-09] MEDS: OLANZapine 5 MG RAPDIS TABLET PO PRN ×2 (09:00→16:52)
[2021-05-09] MEDS ORDERED: PALIPERIDONE PALMITATE 156 MG/ML SYRINGE IM ONE (09:00)
[2021-05-09] MEDS: LORazepam 2 MG TABLET PO PRN ×2 (09:00→16:53)
[2021-05-09] MEDS: FOLIC ACID 1 MG TABLET PO SCH (09:58)
[2021-05-09] MEDS: OMEGA-3/DHA/EPA/FISH OIL 1,000 MG CAPSULE PO SCH (09:58)
[2021-05-09] MEDS: THIAMINE 100 MG TABLET PO SCH ×2 (09:58→16:52)
[2021-05-09] MEDS: MULTIVITAMINS WITH MINERALS, THERAPEUTIC TABLET PO SCH (09:58)
[2021-05-09] MEDS: NALTREXONE HCL 50 MG TABLET PO SCH (09:58)
[2021-05-09 10:07] VITALS: BP 126/77
[2021-05-09 16:11] VITALS: BP 127/75
[2021-05-09] MEDS: MELATONIN 5 MG TABLET PO SCH (20:44)
[2021-05-09] MEDS: OLANZapine 10 MG RAPDIS TABLET PO SCH (20:44)
[2021-05-09] MEDS: DIVALPROEX SODIUM 500 MG ER TABLET PO SCH (20:44)
[2021-05-09] MEDS: ZOLPIDEM TARTRATE 10 MG TABLET PO PRN (20:45)
[2021-05-10] MEDS ORDERED: LORazepam 1 MG TABLET ONE (08:09)
[2021-05-10 08:23] VITALS: BP 127/74
[2021-05-10] MEDS: FOLIC ACID 1 MG TABLET PO SCH (09:00)
[2021-05-10] MEDS: OMEGA-3/DHA/EPA/FISH OIL 1,000 MG CAPSULE PO SCH (09:00)
[2021-05-10] MEDS: THIAMINE 100 MG TABLET PO SCH ×2 (09:00→16:09)
[2021-05-10] MEDS: MULTIVITAMINS WITH MINERALS, THERAPEUTIC TABLET PO SCH (09:00)
[2021-05-10] MEDS: NALTREXONE HCL 50 MG TABLET PO SCH (09:00)
[2021-05-10] MEDS ORDERED: NALT50TA PO (15:33)
[2021-05-10] MEDS ORDERED: DIVA-80 PO ×2 (15:33→16:56)
[2021-05-10] MEDS ORDERED: MELA5TAB3 PO (15:33)
[2021-05-10] MEDS ORDERED: OLAN10TA26 PO (15:33)
[2021-05-10] MEDS ORDERED: OMEG-135 PO ×2 (15:33→19:06)
[2021-05-10 16:15] VITALS: BP 129/79
[2021-05-10] MEDS ORDERED: MELA5TAB21 PO (16:57)
[2021-05-10] MEDS ORDERED: OLAN20TA20 PO (16:58)
[2021-05-10] MEDS ORDERED: NALT50TA6 PO (16:58)
[2021-05-11] MEDS ORDERED: PALIPERIDONE PALMITATE 156 MG/ML SYRINGE IM ONE (09:00)
== END 2021-05-10 18:05 | disposition home or self-care (01) | DRG 885 ==
LOC: EMS 07:25 → UNDOADMIN 16:05 → B3A 16:05
PROVIDERS: ADMIT Psychiatry & Neurology Psychiatry; ATTEND Psychiatry & Neurology Psychiatry
DX: F25.0 Schizoaffective disorder, bipolar type (principal); N18.9 Chronic kidney disease, unspecified; G47.00 Insomnia, unspecified; Z62.810 Personal history of physical and sexual abuse in childhood; Z20.822 Contact with and (suspected) exposure to COVID-19; I12.9 Hypertensive chronic kidney disease with stage 1 through stage 4 chronic kidney disease, or unspecified chronic kidney disease; D64.9 Anemia, unspecified; F12.90 Cannabis use, unspecified, uncomplicated; F17.210 Nicotine dependence, cigarettes, uncomplicated; R41.843 Psychomotor deficit; Z55.9 Problems related to education and literacy, unspecified; Z59.9 Problem related to housing and economic circumstances, unspecified; Z65.3 Problems related to other legal circumstances; Z91.14 Patient's other noncompliance with medication regimen; Z88.8 Allergy status to other drugs, medicaments and biological substances; Z91.19 Patient's noncompliance with other medical treatment and regimen; Z91.5 Personal history of self-harm; Z59.0 Homelessness; Z79.899 Other long term (current) drug therapy
CPT/HCPCS: 80053; 80164; 85025; 99285; A9575; G0480; J1200; J1630; J2060

== ENCOUNTER 2021-05-11 22:12 | Emergency (ER) | payer MEDICARE ==
[~2021-05-11] VITALS: Ht 177.8 cm; Wt 111.4 kg
[~2021-05-11 22:12] MED LIST changes: -ATEN-187 PO; +DIVA-80 PO; +OLAN10TA26 PO; +OLAN20TA20 PO; -OLAN5TAB52 PO; +OMEG-135 PO
[2021-05-11] MEDS ORDERED: IBUPROFEN 800 MG TABLET PO ONE (23:15)
[2021-05-11 23:24] VITALS: BP 153/79
== END 2021-05-11 23:23 | disposition home or self-care (01) ==
LOC: EMS 22:12
DX: L84 Corns and callosities (principal); I10 Essential (primary) hypertension; F20.9 Schizophrenia, unspecified; F17.210 Nicotine dependence, cigarettes, uncomplicated; F12.90 Cannabis use, unspecified, uncomplicated; Z59.0 Homelessness; Z88.8 Allergy status to other drugs, medicaments and biological substances
CPT/HCPCS: 99282; Z7502; Z7610

== ENCOUNTER 2021-05-12 16:48 | Emergency (ER) | payer MEDICARE ==
[~2021-05-12] VITALS: Ht 177.8 cm; Wt 111.4 kg
[2021-05-12] MEDS ORDERED: NEOMYCIN/BACITRACIN/POLYMYXIN B OINTMENT PACKET TP ONE (17:30)
[2021-05-12] MEDS ORDERED: BACITRACIN 0.9 GM PACKET OINTMENT TP ONE (17:34)
[2021-05-12 17:44] VITALS: BP 130/71
== END 2021-05-12 17:45 | disposition home or self-care (01) ==
LOC: EMS 16:48
DX: S90.822A Blister (nonthermal), left foot, initial encounter (principal); I10 Essential (primary) hypertension; F20.9 Schizophrenia, unspecified; F17.210 Nicotine dependence, cigarettes, uncomplicated; F12.90 Cannabis use, unspecified, uncomplicated; Z88.8 Allergy status to other drugs, medicaments and biological substances; X58.XXXA Exposure to other specified factors, initial encounter; Y93.89 Activity, other specified; Y92.89 Other specified places as the place of occurrence of the external cause; Y99.8 Other external cause status
CPT/HCPCS: 99282; Z7502; Z7610

== ENCOUNTER 2021-05-13 04:13 | Emergency (ER) | payer MEDICARE ==
[~2021-05-13] VITALS: Ht 177.8 cm; Wt 111.4 kg
[~2021-05-13 04:13] MED LIST changes: -OLAN10TA26 PO
[2021-05-13] MEDS ORDERED: IBUPROFEN 800 MG TABLET PO ONE (04:30)
[2021-05-13 04:47] VITALS: BP 133/71
== END 2021-05-13 04:58 | disposition home or self-care (01) ==
LOC: EMS 04:15
DX: L84 Corns and callosities (principal); Z88.8 Allergy status to other drugs, medicaments and biological substances
CPT/HCPCS: 99282; Z7502; Z7610

== ENCOUNTER 2021-08-17 17:32 | Emergency (ER) | payer MEDICARE, OTHER ==
[~2021-08-17] VITALS: Ht 175.3 cm; Wt 111.4 kg
[2021-08-17] MEDS ORDERED: OLANZapine 5 MG RAPDIS TABLET PO ONE (21:30)
[2021-08-17] MEDS ORDERED: IBUPROFEN 600 MG TABLET PO ONE (21:30)
[2021-08-17 21:50] VITALS: BP 124/79
== END 2021-08-17 22:35 | disposition home or self-care (01) ==
LOC: EMS 17:32
DX: S29.011A Strain of muscle and tendon of front wall of thorax, initial encounter (principal); F20.9 Schizophrenia, unspecified; I10 Essential (primary) hypertension; F17.210 Nicotine dependence, cigarettes, uncomplicated; F12.90 Cannabis use, unspecified, uncomplicated; X58.XXXA Exposure to other specified factors, initial encounter; Y93.89 Activity, other specified; Y92.89 Other specified places as the place of occurrence of the external cause; Y99.8 Other external cause status
CPT/HCPCS: 99283

== ENCOUNTER 2021-08-18 16:42 | Emergency (ER) | payer OTHER ==
[~2021-08-18] VITALS: Ht 175.3 cm; Wt 100.0 kg
[2021-08-18] MEDS ORDERED: ACETAMINOPHEN 500 MG TABLET PO ONE (17:30)
[2021-08-18 18:08] VITALS: BP 110/68
== END 2021-08-18 18:09 | disposition home or self-care (01) ==
LOC: EMS 16:44
DX: M79.604 Pain in right leg (principal); M79.605 Pain in left leg; F25.9 Schizoaffective disorder, unspecified; I10 Essential (primary) hypertension; F17.210 Nicotine dependence, cigarettes, uncomplicated; F12.90 Cannabis use, unspecified, uncomplicated; Z88.8 Allergy status to other drugs, medicaments and biological substances
CPT/HCPCS: 99282; 99283

== ENCOUNTER 2021-11-30 14:15 | Emergency (ER) | payer MEDICARE, OTHER ==
[~2021-11-30] VITALS: Ht 175.3 cm; Wt 90.9 kg
[2021-11-30 18:48] LABS: BASOPHILS % (AUTO) 0.8 % (0.0-2.0); EOSINOPHILS % (AUTO) 2.1 % (1.0-6.0); HEMATOCRIT 46.9 % (41-53); LYMPHOCYTES # (AUTO) 2.4 K/uL (1.0-4.8); LYMPHOCYTES % (AUTO) 24.2 % (22.0-44.0); MEAN CORPUSCULAR HEMOGLOBIN 29.9 pg (26.0-34.0); MEAN CORPUSCULAR HGB CONC 34.2 G/dL (31.0-37.0); MEAN CORPUSCULAR VOLUME 87 fL (80-100); MONOCYTES # (AUTO) 0.7 K/uL (0.1-1.0); MONOCYTES % (AUTO) 7.5 % (2.0-9.0); NEUTROPHILS # (AUTO) 6.4 K/uL (1.8-7.7); NEUTROPHILS % (AUTO) 65.4 % (40.0-70.0); PLATELET COUNT (AUTO) 291 K/uL (150-450); RED BLOOD CELL COUNT(AUTO) 5.37 MIL/uL (4.50-5.90); RED CELL DISTRIBUTION WIDTH 13.8 % (11.5-14.5)
[2021-11-30 19:08] LABS: ANION GAP 7 mmol/L (8-16); CALCIUM, TOTAL 9.4 mg/dL (8.8-10.5); CARBON DIOXIDE 33 mmol/L (22-29); CHLORIDE 104 mmol/L (98-107); CREATININE 1.25 mg/dL (0.60-1.30); GLOMERULAR FILTR. RATE CALC > 60 mL/min (>60); GLUCOSE,RANDOM 86 mg/dL (70-110); POTASSIUM 4.2 mmol/L (3.5-5.1); SODIUM SERUM 144 mmol/L (136-145); UREA NITROGEN, BLOOD 14 mg/dL (7-18)
[2021-11-30 19:14] LABS: ALANINE AMINOTRANSFERASE 28 U/L (12-78); ALBUMIN 4.4 g/dL (3.4-5.0); ALKALINE PHOSPHATASE 71 U/L (46-116); ASPARTATE AMINOTRANSFERASE 22 U/L (15-37); BILIRUBIN,TOTAL 0.7 mg/dL (0.1-1.0); TOTAL PROTEIN, SERUM 7.9 g/dL (6.4-8.2)
[2021-11-30] MEDS ORDERED: HALOPERIDOL 5 MG TABLET PO ONE (20:30)
[2021-11-30 21:11] VITALS: BP 141/77
== END 2021-11-30 21:59 | disposition home or self-care (01) ==
LOC: EMS 14:20
DX: F22 Delusional disorders (principal); I10 Essential (primary) hypertension; F12.90 Cannabis use, unspecified, uncomplicated; F17.210 Nicotine dependence, cigarettes, uncomplicated; F20.9 Schizophrenia, unspecified; Z79.899 Other long term (current) drug therapy
CPT/HCPCS: 36415; 80053; 85025; 99284; G0480